=== PATIENT | female | born 1990 | race American Indian/Alaskan Native ===

== ENCOUNTER 2018-09-18 18:07 | Emergency (ER) | payer OTHER ==
[2018-09-18 18:19] VITALS: BMI 19.0
[2018-09-18 18:23] VITALS: RESP 18
--- NOTE | 2018-09-18 18:26 | ED PDOC ---
Arrival/HPI - General Chief Complaint: Flu-like Symptoms Time Seen by Provider: 09/18/18 18:24 Historian: Patient - History of Present Illness Narrative History of Present Illness (Text): 09/18/18 18:27 27yo female with no past medical history who present with 2days history of generalized bodyache and cough. States she started having fever today. Notes that she saw her PMD yesterday for the symptoms and her exam was negative. She did not take any medication for her symptoms. Denies rhinorrhea, sore throat, nausea, abdominal pain, sick contact, chest pain, shortness of breath, any other complaint. Past Medical History - Provider Review Nursing Documentation Reviewed: Yes - Infectious Disease Hx of Infectious Diseases: None - Reproductive Currently : No - Psychiatric Hx Substance Use: No Family/Social History - Physician Review Nursing Documentation Reviewed: Yes Family/Social History: Unknown Family HX Smoking Status: Light Smoker < 10 Cigarettes Daily Hx Alcohol Use: Yes Frequency of alcohol use: Socially Hx Substance Use: No Allergies/Home Meds Allergies/Adverse Reactions: Allergies No Known Allergies Allergy (Verified 09/18/18 18:19) Home Medications: Home Meds Medication Instructions Recorded Confirmed Norelgestromin/Ethin.estradiol 1 patch TOP Q7D 09/18/18 09/18/18 [Xulane Patch] Review of Systems - Physician Review All systems were reviewed & negative as marked: Yes - Review of Systems Constitutional: Fatigue, Fevers Eyes: Normal ENT: Normal Respiratory: Cough Cardiovascular: Normal Gastrointestinal: Normal Genitourinary Female: Normal Musculoskeletal: Normal Skin: Normal Neurological: Normal Endocrine: Normal Hemo/Lymphatic: Normal Psychiatric: Normal Physical Exam Vital Signs Reviewed: Yes Vital Signs Temp Pulse Resp BP Pulse Ox 09/18/18 18:23 102.5 F H 106 H 18 125/82 97 Temperature: Febrile Blood Pressure: Normal Pulse: Tachycardic Respiratory Rate: Normal Appearance: Positive for: Well-Appearing, Non-Toxic, Comfortable Pain Distress: None Mental Status: Positive for: Alert and Oriented X 3 - Systems Exam Head: Present: Atraumatic, Normocephalic Pupils: Present: PERRL Extroacular Muscles: Present: EOMI Conjunctiva: Present: Normal Mouth: Present: Moist Mucous Membranes Neck: Present: Normal Range of Motion Respiratory/Chest: Present: Clear to Auscultation, Good Air Exchange. No: Respiratory Distress, Accessory Muscle Use, Wheezes, Decreased Breath Sounds, Rales, Retracting, Rhonchi, Tachypneic Cardiovascular: Present: Regular Rate and Rhythm, Normal S1, S2. No: Murmurs Abdomen: No: Tenderness, Distention, Peritoneal Signs Back: Present: Normal Inspection Upper Extremity: Present: Normal Inspection. No: Cyanosis, Edema Lower Extremity: Present: Normal Inspection. No: Edema Neurological: Present: GCS=15, CN II-XII Intact, Speech Normal Skin: Present: Warm, Dry, Normal Color. No: Rashes Psychiatric: Present: Alert, Oriented x 3, Normal Insight, Normal Concentration Medical Decision Making ED Course and Treatment: 09/18/18 20:05 PT present to Emergency department for stated history. She was febrile on arrival and improved with antipyretics in Emergency department chest xray - NAD PT was treated symptomatically for viral URI and DC home with same medication Advised to rest, drink plenty of fluid and f/u with her PMD Disposition/Present on Arrival - Present on Arrival Any Indicators Present on Arrival: No History of DVT/PE: No History of Uncontrolled Diabetes: No Urinary Catheter: No History of Decub. Ulcer: No History Surgical Site Infection Following: CABG - Mediastinitis, None - Disposition Have Diagnosis and Disposition been Completed?: Yes Diagnosis: Viral URI with cough Disposition: HOME/ ROUTINE Disposition Time: 19:55 Patient Plan: Discharge Condition: STABLE Discharge Instructions (ExitCare): Viral Upper Respiratory Infection, Adult (DC) Additional Instructions: Follow up with your Doctor Drink plenty of fluid and rest Return to Emergency department for any new or worsening symptoms Prescriptions: Albuterol HFA [Ventolin HFA 90 mcg/actuation (8 g)] 2 puff IH [id number] #1 puff guaiFENesin [guaifENESIN] 100 mg PO Q6 #100 ml Ibuprofen [Motrin Tab] 600 mg PO Q6 #15 tab Referrals: Milan Torres MD [Primary Care Provider] - Follow up with primary Forms: [employer] ([place])
[2018-09-18] MEDS ORDERED: guaiFENesin 100 mg/5 ml Syrup UD PO STA (19:53)
[2018-09-18 19:57] VITALS: BP 118/79; PULSE 88; TEMP 99.6; O2SAT 98
--- NOTE | 2018-09-19 10:05 | RAD ---
Date of service: 09/18/2018 HISTORY: cough COMPARISON: Comparison chest 09/27/2016 FINDINGS: LUNGS: No active pulmonary disease. PLEURA: No significant pleural effusion identified, no pneumothorax apparent. CARDIOVASCULAR: No aortic atherosclerotic calcification present. Normal cardiac size. No pulmonary vascular congestion. OSSEOUS STRUCTURES: No significant abnormalities. VISUALIZED UPPER ABDOMEN: Normal. OTHER FINDINGS: None. IMPRESSION: No active disease.
== END 2018-09-18 20:05 | disposition home or self-care (01) ==
LOC: ED 18:07
DX: J06.9 Acute upper respiratory infection, unspecified (principal); R05 Cough; F17.210 Nicotine dependence, cigarettes, uncomplicated